=== PATIENT | female | born 1945 | race Caucasian/White ===

== ENCOUNTER → 2025-01-21 | Outpatient (CLI) | payer MEDICARE ==
[~2025-01-21] MED LIST: PERCOCET PO; XARE15TA PO
== END ==
LOC: M RAD 14:33
PROVIDERS: ATTEND Internal Medicine
DX: N95.0 Postmenopausal bleeding (principal); D25.2 Subserosal leiomyoma of uterus; N88.8 Other specified noninflammatory disorders of cervix uteri; N83.292 Other ovarian cyst, left side; R93.89 Abnormal findings on diagnostic imaging of other specified body structures

== ENCOUNTER → 2025-01-21 | Outpatient (REF) | payer MEDICARE ==
[2025-01-21 18:31] LABS: IRON (FE) 104.0 UG/DL (50-170); PERCENT SATURATION 35.4 % (13.2-45.0)
[2025-01-21 18:48] LABS: CA 125 27.0 U/ML (<35)
== END ==
LOC: M LAB REF 17:25
PROVIDERS: ATTEND Internal Medicine
DX: N84.8 Polyp of other parts of female genital tract (principal); N95.0 Postmenopausal bleeding

== ENCOUNTER → 2025-03-06 | Outpatient (REF) | payer MEDICARE | LOC: M PLALAB 12:00 | PROVIDERS: ATTEND Physician Assistant | DX: N95.0 Postmenopausal bleeding (principal) ==